=== PATIENT | male | born 1980 | race Caucasian/White ===

== ENCOUNTER 2017-05-09 09:45 | Inpatient (IN) | payer OTHER ==
[2017-05-09 10:23] VITALS: BMI 22.3
--- NOTE | 2017-05-09 11:39 | HP ---
CIWA Score - CIWA Score Nausea/Vomitin Muscle Tremors: 3 Anxiety: 3 Agitation: 3 Paroxysmal Sweats: 1-Minimal Palms Moist Orientation: 0-Oriented Tacttile Disturbances: 1-Very Mild Itch/Numbness Auditory Disturbances: 1-Very Mild Visual Disturbances: 0-None Headache: 2-Mild CIWA-Ar Total Score: 17 Admission ROS BHS - HPI Chief Complaint: i need help to stop drinking alcohol and xanax Allergies/Adverse Reactions: Allergies Allergy/AdvReac Type Severity Reaction Status Date / Time Penicillins Allergy Severe Rash Verified 05/09/17 10:32 History of Present Illness: this 37 years old male with alcohol dependence and xanax dependence,seeking detox,on suboxone maintenance 8mg/2mg sl bid last treatment 03/15 [place] depression nicotine dependence weight loss longest sobriety 3 years Exam Limitations: No Limitations - Ebola screening Have you been sick,other than usual withdrawal symptoms: No - Review of Systems Constitutional: Loss of Appetite, Malaise, Night Sweats, Changes in sleep, Weakness, Unintentional Wgt. Loss EENT: reports: Nose Congestion Respiratory: reports: No Symptoms reported Cardiac: reports: No Symptoms Reported GI: reports: Nausea, Vomiting, Abdominal cramping : reports: No Symptoms Reported Musculoskeletal: reports: No Symptoms Reported Integumentary: reports: Dryness Neuro: reports: Headache, Tremors Endocrine: reports: No Symptoms Reported Hematology: reports: No Symptoms Reported Psychiatric: reports: Depressed Patient History - Patient Medical History Hx Anemia: No Hx Asthma: No Hx Chronic Obstructive Pulmonary Disease (COPD): No Hx Cancer: No Hx Cardiac Disorders: No Hx Congestive Heart Failure: No Hx Hypertension: No Hx Hypercholesterolemia: No Hx Pacemaker: No HX Cerebrovascular Accident: No Hx Seizures: No Hx Dementia: No Hx Diabetes: No Hx Gastrointestinal Disorders: No Hx Liver Disease: No Hx Genitourinary Disorders: No Hx Sexually Transmitted Disorders: No Hx Renal Disease (ESRD): No Hx Human Immunodeficiency Virus (HIV): No (last 03/15 negative) Hx Hepatitis C: No Hx Depression: Yes Hx Suicide Attempt: No Hx Bipolar Disorder: No Hx Schizophrenia: No Other Medical History: no suicidal,no homicidal - Patient Surgical History Past Surgical History: No - PPD History Previous Implant?: Yes Documented Results: Negative w/o proof Implanted On Prior [facility] Admission?: No PPD to be Administered?: Yes - Smoking Cessation Smoking history: Current every day smoker Have you smoked in the past 12 months: Yes Aproximately how many cigarettes per day: 15 Hx Chewing Tobacco Use: No Initiated information on smoking cessation: Yes 'Breaking Loose' booklet given: 05/09/17 - Substance & Tx. History Hx Alcohol Use: Yes Hx Substance Use: Yes Substance Use Type: Alcohol, Cocaine, Marijuana, Tranquilizers Hx Substance Use Treatment: Yes ([facility] sag[facility]ume 03/15 completed) - Substances Abused Alcohol Route: Oral Frequency: Daily Amount used: 6PK BEER Age of first use: 20 Date of Last Use: 05/09/17 Cocaine Route: Injection Frequency: Daily Amount used: $40-60 Age of first use: 26 Date of Last Use: 05/08/17 Marijuana/Hashish Route: Smoking Frequency: 1-3 times last 30 days Amount used: 2-3 DRAGS Age of first use: 24 Date of Last Use: 05/06/17 Alprazolam (Xanax) Route: Oral Frequency: 3-6 times per week Amount used: 2MG Age of first use: 31 Date of Last Use: 05/08/17 Family Disease History - Family Disease History Family Disease History: Other: Brother (alcohol) Admission Physical Exam S - Vital Signs Vital Signs: Vital Signs - 24 hr 05/09/17 10:18 Temperature 99 F Pulse Rate 81 Respiratory 18 Rate Blood Pressure 107/60 - Physical General Appearance: Yes: Moderate Distress, Tremorous, Sweating HEENTM: Yes: Normal ENT Inspection, [place], Pharynx Normal Respiratory: Yes: Lungs Clear, Normal Breath Sounds, No Respiratory Distress Neck: Yes: Within Normal Limits Breast: Yes: Within Normal Limits Cardiology: Yes: Within Normal Limits, Regular Rhythm, Regular Rate, S1, S2 Abdominal: Yes: Within Normal Limits, Normal Bowel Sounds, Non Tender, Flat, Soft Genitourinary: Yes: Within Normal Limits Back: Yes: Muscle Spasm Extremities: Yes: Tremors Neurological: Yes: Within Normal Limits, manufacturing applications engineer II-XII NML intact, Fully Oriented, Alert, Motor Strength 5/5 Integumentary: Yes: Dry Lymphatic: Yes: Within Normal Limits - Diagnostic (1) Alcohol dependence with uncomplicated withdrawal Current Visit: Yes Status: Acute (2) Cocaine dependence Current Visit: Yes Status: Acute (3) Uncomplicated sedative, hypnotic or anxiolytic withdrawal Current Visit: Yes Status: Acute (4) Cannabis dependence Current Visit: Yes Status: Acute (5) Seizure Current Visit: Yes Status: Acute (6) Encounter for monitoring Suboxone maintenance therapy Current Visit: Yes Status: Acute (7) Nicotine dependence Current Visit: Yes Status: Acute (8) Depression Current Visit: Yes Status: Acute (9) Weight loss Current Visit: Yes Status: Acute Cleared for Admission BHS - Detox or Rehab Detox Regimen/Protocol: Valium BHS Breath Alcohol Content Breath Alcohol Content: 0 Urine Drug Screen - Results Drug Screen Negative: No Urine Drug Screen Results: THC-Marijuana, [place]-Cocaine, OPI-Opiates, BAR- Barbiturates, BZO-Benzodiazepines, OXY-Oxycodone
[2017-05-09] MEDS ORDERED: MAGNESIUM CITRATE 300 ML BOTTLE PO PRN (11:51)
[2017-05-09] MEDS ORDERED: MAG HYDROX/AL HYDROX/SIMETH 30 ML UNIT-DOSE CUP PO PRN (11:51)
[2017-05-09] MEDS ORDERED: P-EPHED 60MG/TRIPROLIDI 2.5MG TABLET PO PRN (11:51)
[2017-05-09] MEDS ORDERED: guaiFENesin/D-METHORPHAN HB 10 ML UNIT-DOSE CUPS PO PRN (11:51)
[2017-05-09] MEDS ORDERED: MAGNESIUM HYDROX 2400MG/30ML ORAL SUSPENSION 30 ML CUP PO PRN (11:51)
[2017-05-09] MEDS ORDERED: MENTHOL/PHENOL 1 EACH UD MM PRN (11:51)
[2017-05-09] MEDS ORDERED: LOPERAMIDE HCL 2 MG CAPSULE PO PRN (11:51)
[2017-05-09] MEDS ORDERED: diazePAM 5 MG TABLET PO ONE (13:41)
--- NOTE | 2017-05-09 14:00 | PN ---
BHS Progress Note Note: patient has abscess of left forearm o give clecin 300 mgs po tid
[2017-05-09] MEDS: CLINDAMYCIN HCL 150 MG CAPSULE (FP) PO SCH ×2 (14:41→22:10)
[2017-05-09] MEDS: NICOTINE 21 MG/24 HOURS TOPICAL PATCH TD SCH (14:42)
[2017-05-09] MEDS: NICOTINE POLACRILEX 2 MG GUM BUC PRN (14:42)
[2017-05-09] MEDS: diazePAM 5 MG TABLET PO SCH ×2 (14:43→22:10)
--- NOTE | 2017-05-09 15:43 | PN ---
[facility] Progress Note Note: Psychiatric nurse practitioner: Approached patient twice in response to psychiatric consultation. Pt. refused. Stated, "tomorrow will be much better. I do not want to speak today."
--- NOTE | 2017-05-09 16:02 | EKG ---
Test Reason : Blood Pressure : / mmHG Vent. Rate : 067 BPM Atrial Rate : 067 BPM P-R Int : 132 ms QRS Dur : 090 ms QT Int : 408 ms P-R-T Axes : 065 062 040 degrees QTc Int : 431 ms NORMAL SINUS RHYTHM MINIMAL VOLTAGE CRITERIA FOR LVH, MAY BE NORMAL VARIANT BORDERLINE ECG NO PREVIOUS ECGS AVAILABLE Confirmed by YU CAMPOS MD ([id number]) on 05/09/2017 4:02:35 PM Referred By: Confirmed By:YU CAMPOS MD
[2017-05-09] MEDS: BUPRENORPHINE/NALOXONE 8 MG/2 MG FILM PACKET SL SCH (17:32)
[2017-05-09] MEDS: THIAMINE HCL 100 MG TABLET (FP) PO SCH (22:10)
[2017-05-09 23:19] LABS: URINE APPEARANCE CLEAR; URINE BILIRUBIN NEGATIVE (NEGATIVE); URINE BLOOD NEGATIVE (NEGATIVE); URINE COLOR YELLOW; URINE GLUCOSE (UA) NEGATIVE (NEGATIVE); URINE KETONE NEGATIVE (NEGATIVE); URINE NITRITE NEGATIVE (NEGATIVE); URINE PROTEIN NEGATIVE (NEGATIVE); URINE UROBILINOGEN NEGATIVE mg/dL (0.2-1.0)
[2017-05-09 23:30] LABS: URINE LEUK ESTERASE 1+ (NEGATIVE)
[2017-05-10 00:16] LABS: URINE MUCUS RARE
[2017-05-10] MEDS: diazePAM 5 MG TABLET PO SCH ×3 (05:11→22:07)
[2017-05-10] MEDS: CLINDAMYCIN HCL 150 MG CAPSULE (FP) PO SCH ×3 (05:11→22:07)
[2017-05-10] MEDS: ACETAMINOPHEN 325 MG TABLET (FP) PO PRN ×2 (06:27→22:08)
[2017-05-10 10:04] LABS: HEMOGLOBIN 11.6 GM/dL (11.7-16.9); MCH 30.3 pg (25.7-33.7); MCHC 32.3 g/dl (32.0-35.9); MEAN PLT VOLUME 8.3 fl (7.5-11.1); PLATELET COUNT 336 K/MM3 (134-434); RBC 3.83 M/mm3 (4.00-5.60); RDW 14.3 % (11.9-15.9); WHITE BLOOD COUNT 7.1 K/mm3 (4.0-10.0)
[2017-05-10] MEDS: PRENATAL VITAMINS W/ FOLIC ACID TABLET (FP) PO SCH (10:05)
[2017-05-10] MEDS: NICOTINE 21 MG/24 HOURS TOPICAL PATCH TD SCH (10:06)
[2017-05-10] MEDS: BUPRENORPHINE/NALOXONE 8 MG/2 MG FILM PACKET SL SCH ×3 (10:06→18:39)
[2017-05-10 10:17] LABS: ALBUMIN 3.6 g/dl (3.4-5.0); ANION GAP 4 (8-16); BLOOD UREA NITROGEN 8 mg/dL (7-18); CALCIUM 8.5 mg/dL (8.5-10.1); CHLORIDE 99 mmol/L (98-107); CO2 31 mmol/L (21-32); CREATININE 0.8 mg/dL (0.7-1.3); GLUCOSE,RANDOM 104 mg/dL (74-106); POTASSIUM 4.2 mmol/L (3.5-5.1); SGOT/AST 10 U/L (15-37); SGPT/ALT 13 U/L (12-78); SODIUM 134 mmol/L (136-145)
[2017-05-10 10:20] LABS: ALK PHOS 94 U/L (45-117); BILIRUBIN,TOTAL 0.5 mg/dL (0.2-1.0); TOT PROT 7.3 g/dl (6.4-8.2)
--- NOTE | 2017-05-10 10:40 | PN ---
[facility] CIWA - CIWA Score Nausea/Vomitin-No Nausea/No Vomiting Muscle Tremors: 4-Moderate,w/Arms Extend Anxiety: 4-Mod. Anxious/Guarded Agitation: 4-Moderately Restless Paroxysmal Sweats: 1-Minimal Palms Moist Orientation: 0-Oriented Tacttile Disturbances: 3-Moderate Itch/Numb/Burn Auditory Disturbances: 0-None Visual Disturbances: 0-None Headache: 0-None Present CIWA-Ar Total Score: 16 BHS Progress Note (SOAP) Subjective: ANXIETY,SWEATS,IRRITABILITY,LOWER BACK PAIN. PAIN TO LEFT FOREARM IVD INJ. SITE. Objective: 05/10/17 10:39 Vital Signs Temperature 95.6 F L 05/10/17 09:45 Pulse Rate 70 05/10/17 09:45 Respiratory Rate 18 05/10/17 09:45 Blood Pressure 93/67 05/10/17 09:45 O2 Sat by Pulse Oximetry (%) Laboratory Last Values WBC 7.1 K/mm3 (4.0-10.0) 05/10/17 05:45 RBC 3.83 M/mm3 (4.00-5.60) L 05/10/17 05:45 Hgb 11.6 GM/dL (11.7-16.9) L 05/10/17 05:45 Hct 36.0 % (35.4-49) 05/10/17 05:45 MCV 94.0 fl (80-96) 05/10/17 05:45 MCH 30.3 pg (25.7-33.7) 05/10/17 05:45 MCHC 32.3 g/dl (32.0-35.9) 05/10/17 05:45 RDW 14.3 % (11.9-15.9) 05/10/17 05:45 Plt Count 336 K/MM3 (134-434) 05/10/17 05:45 MPV 8.3 fl (7.5-11.1) 05/10/17 05:45 Sodium 134 mmol/L (136-145) L 05/10/17 05:45 Potassium 4.2 mmol/L (3.5-5.1) 05/10/17 05:45 Chloride 99 mmol/L (98-107) 05/10/17 05:45 Carbon Dioxide 31 mmol/L (21-32) 05/10/17 05:45 Anion Gap 4 (8-16) L 05/10/17 05:45 BUN 8 mg/dL (7-18) 05/10/17 05:45 Creatinine 0.8 mg/dL (0.7-1.3) 05/10/17 05:45 Creat Clearance w eGFR > 60 (>60) 05/10/17 05:45 Random Glucose 104 mg/dL (74-106) 05/10/17 05:45 Calcium 8.5 mg/dL (8.5-10.1) 05/10/17 05:45 Total Bilirubin 0.5 mg/dL (0.2-1.0) 05/10/17 05:45 AST 10 U/L (15-37) L 05/10/17 05:45 ALT 13 U/L (12-78) 05/10/17 05:45 Alkaline Phosphatase 94 U/L (45-117) 05/10/17 05:45 Total Protein 7.3 g/dl (6.4-8.2) 05/10/17 05:45 Albumin 3.6 g/dl (3.4-5.0) 05/10/17 05:45 Urine Color Yellow 05/09/17 21:00 Urine Appearance Clear 05/09/17 21:00 Urine pH 6.0 (5.0-8.0) 05/09/17 21:00 Ur Specific [place] 1.016 (1.001-1.035) 05/09/17 21:00 Urine Protein Negative (NEGATIVE) 05/09/17 21:00 Urine Glucose (UA) Negative (NEGATIVE) 05/09/17 21:00 Urine Ketones Negative (NEGATIVE) 05/09/17 21:00 Urine Blood Negative (NEGATIVE) 05/09/17 21:00 Urine Nitrite Negative (NEGATIVE) 05/09/17 21:00 Urine Bilirubin Negative (NEGATIVE) 05/09/17 21:00 Urine Urobilinogen Negative mg/dL (0.2-1.0) 05/09/17 21:00 Ur Leukocyte Esterase 1+ (NEGATIVE) H 05/09/17 21:00 Urine WBC (Auto) 6 /hpf (3-5) 05/09/17 21:00 Urine RBC (Auto) <1 /hpf (0-3) 05/09/17 21:00 Urine Mucus Rare 05/09/17 21:00 LABS/UA NOTED Assessment: 05/10/17 10:39 WITHDRAWAL SX Plan: CONTINUE DETOX REPEAT UA; UC
--- NOTE | 2017-05-10 10:57 | CONSULT ---
[facility] Psychiatric Consult - Data Date of interview: 05/10/17 Admission source: [facility] Identifying data: Patient is approached at bedside for psychiatric evaluation.Mr Hernandez,politely,declines to converse with this insurance underwriter sales." I don't need to talk to a psychiatrist.I am just fine.Thank you for asking." Nursing staff is made aware.
[2017-05-10] MEDS: BACITRACIN 0.9 GM PACKET TP SCH ×2 (11:00→22:07)
[2017-05-10] MEDS ORDERED: FLU VACCINE QUAD 60 MCG/0.5 ML (MDV 17-18) IM ONE (12:00)
[2017-05-10] MEDS: IBUPROFEN 400 MG TABLET (FP) PO PRN ×2 (12:25→18:22)
[2017-05-10 14:23] LABS: URINE APPEARANCE CLEAR; URINE BILIRUBIN NEGATIVE (NEGATIVE); URINE BLOOD NEGATIVE (NEGATIVE); URINE COLOR YELLOW; URINE GLUCOSE (UA) NEGATIVE (NEGATIVE); URINE KETONE NEGATIVE (NEGATIVE); URINE LEUK ESTERASE NEGATIVE (NEGATIVE); URINE NITRITE NEGATIVE (NEGATIVE); URINE PROTEIN NEGATIVE (NEGATIVE); URINE UROBILINOGEN NEGATIVE mg/dL (0.2-1.0)
[2017-05-10] MEDS: NICOTINE POLACRILEX 2 MG GUM BUC PRN (20:22)
[2017-05-10] MEDS: THIAMINE HCL 100 MG TABLET (FP) PO SCH (22:07)
[2017-05-11] MEDS: IBUPROFEN 400 MG TABLET (FP) PO PRN (02:30)
[2017-05-11] MEDS: diazePAM 5 MG TABLET PO PRN ×2 (05:45→14:46)
[2017-05-11] MEDS: CLINDAMYCIN HCL 150 MG CAPSULE (FP) PO SCH ×3 (05:46→22:07)
[2017-05-11] MEDS: ACETAMINOPHEN 325 MG TABLET (FP) PO PRN ×2 (08:22→20:24)
--- NOTE | 2017-05-11 08:58 | PN ---
S CIWA - CIWA Score Nausea/Vomitin Muscle Tremors: 2 Anxiety: 3 Agitation: 1-Slight > Activity Paroxysmal Sweats: 2 Orientation: 0-Oriented Tacttile Disturbances: 1-Very Mild Itch/Numbness Auditory Disturbances: 1-Very Mild Visual Disturbances: 1-Very Mild Sensitivity Headache: 1-Very Mild CIWA-Ar Total Score: 14 S Progress Note (SOAP) Subjective: Shakes, anxiety, left hand pain Objective: 05/11/17 08:54 Vital Signs 05/11/17 05/11/17 03:26 06:21 Temperature 97.5 F L Pulse Rate 74 Respiratory 18 18 Rate Blood Pressure 100/64 Laboratory Last Values WBC 7.1 K/mm3 (4.0-10.0) 05/10/17 05:45 RBC 3.83 M/mm3 (4.00-5.60) L 05/10/17 05:45 Hgb 11.6 GM/dL (11.7-16.9) L 05/10/17 05:45 Hct 36.0 % (35.4-49) 05/10/17 05:45 MCV 94.0 fl (80-96) 05/10/17 05:45 MCH 30.3 pg (25.7-33.7) 05/10/17 05:45 MCHC 32.3 g/dl (32.0-35.9) 05/10/17 05:45 RDW 14.3 % (11.9-15.9) 05/10/17 05:45 Plt Count 336 K/MM3 (134-434) 05/10/17 05:45 MPV 8.3 fl (7.5-11.1) 05/10/17 05:45 Sodium 134 mmol/L (136-145) L 05/10/17 05:45 Potassium 4.2 mmol/L (3.5-5.1) 05/10/17 05:45 Chloride 99 mmol/L (98-107) 05/10/17 05:45 Carbon Dioxide 31 mmol/L (21-32) 05/10/17 05:45 Anion Gap 4 (8-16) L 05/10/17 05:45 BUN 8 mg/dL (7-18) 05/10/17 05:45 Creatinine 0.8 mg/dL (0.7-1.3) 05/10/17 05:45 Creat Clearance w eGFR > 60 (>60) 05/10/17 05:45 Random Glucose 104 mg/dL (74-106) 05/10/17 05:45 Calcium 8.5 mg/dL (8.5-10.1) 05/10/17 05:45 Total Bilirubin 0.5 mg/dL (0.2-1.0) 05/10/17 05:45 AST 10 U/L (15-37) L 05/10/17 05:45 ALT 13 U/L (12-78) 05/10/17 05:45 Alkaline Phosphatase 94 U/L (45-117) 05/10/17 05:45 Total Protein 7.3 g/dl (6.4-8.2) 05/10/17 05:45 Albumin 3.6 g/dl (3.4-5.0) 05/10/17 05:45 Urine Color Yellow 05/10/17 13:25 Urine Appearance Clear 05/10/17 13:25 Urine pH 7.0 (5.0-8.0) 05/10/17 13:25 Ur Specific [place] 1.012 (1.001-1.035) 05/10/17 13:25 Urine Protein Negative (NEGATIVE) 05/10/17 13:25 Urine Glucose (UA) Negative (NEGATIVE) 05/10/17 13:25 Urine Ketones Negative (NEGATIVE) 05/10/17 13:25 Urine Blood Negative (NEGATIVE) 05/10/17 13:25 Urine Nitrite Negative (NEGATIVE) 05/10/17 13:25 Urine Bilirubin Negative (NEGATIVE) 05/10/17 13:25 Urine Urobilinogen Negative mg/dL (0.2-1.0) 05/10/17 13:25 Ur Leukocyte Esterase Negative (NEGATIVE) 05/10/17 13:25 Urine WBC (Auto) 6 /hpf (3-5) 05/09/17 21:00 Urine RBC (Auto) <1 /hpf (0-3) 05/09/17 21:00 Urine Mucus Rare 05/09/17 21:00 RPR Titer Nonreactive (NONREACTIVE) 05/10/17 05:45 Labs noted Left forearm swelling, moderate erythema and pain 02/05 Assessment: 05/11/17 08:55 Withdrawal sx Left arm abscess, may need I&D Plan: ED evaluation of abscess
[2017-05-11] MEDS: BUPRENORPHINE/NALOXONE 8 MG/2 MG FILM PACKET SL SCH ×2 (09:35→18:15)
[2017-05-11] MEDS: NICOTINE 21 MG/24 HOURS TOPICAL PATCH TD SCH (09:35)
[2017-05-11] MEDS: diazePAM 5 MG TABLET PO SCH ×2 (09:35→22:07)
[2017-05-11] MEDS: BACITRACIN 0.9 GM PACKET TP SCH ×2 (09:35→22:07)
[2017-05-11] MEDS: PRENATAL VITAMINS W/ FOLIC ACID TABLET (FP) PO SCH (09:35)
--- NOTE | 2017-05-11 14:31 | PN ---
[facility] Progress Note Note: Patient was transferred to ED this morning for I&D of left arm abscess. Same was done with no complication and he is sent back to continue detox. He is received in no apparent distress. The surgical site has plain nugauze packing, small amount of bleeding noted. His labs are wnl. A/P s/p I&D of left arm abscess Continue cleocin, local wound care as ordered.
[2017-05-11] MEDS: THIAMINE HCL 100 MG TABLET (FP) PO SCH (22:07)
[2017-05-12] MEDS: diazePAM 5 MG TABLET PO PRN (06:15)
[2017-05-12] MEDS: CLINDAMYCIN HCL 150 MG CAPSULE (FP) PO SCH ×2 (06:15→13:19)
[2017-05-12] MEDS: IBUPROFEN 400 MG TABLET (FP) PO PRN (06:15)
[2017-05-12] MEDS: PRENATAL VITAMINS W/ FOLIC ACID TABLET (FP) PO SCH (10:26)
[2017-05-12] MEDS: BUPRENORPHINE/NALOXONE 8 MG/2 MG FILM PACKET SL SCH ×2 (10:26→17:33)
[2017-05-12] MEDS: NICOTINE 21 MG/24 HOURS TOPICAL PATCH TD SCH (10:26)
[2017-05-12] MEDS: NICOTINE POLACRILEX 2 MG GUM BUC PRN ×3 (10:27→22:07)
[2017-05-12] MEDS: diazePAM 5 MG TABLET PO SCH ×2 (10:27→22:05)
[2017-05-12] MEDS: BACITRACIN 0.9 GM PACKET TP SCH ×2 (10:29→22:04)
--- NOTE | 2017-05-12 12:52 | PN ---
[facility] Progress Note (SOAP) Subjective: lower back pain sweats dressing to L arm incision area intact Objective: 05/12/17 12:49 Laboratory Last Values WBC 7.1 K/mm3 (4.0-10.0) 05/10/17 05:45 RBC 3.83 M/mm3 (4.00-5.60) L 05/10/17 05:45 Hgb 11.6 GM/dL (11.7-16.9) L 05/10/17 05:45 Hct 36.0 % (35.4-49) 05/10/17 05:45 MCV 94.0 fl (80-96) 05/10/17 05:45 MCH 30.3 pg (25.7-33.7) 05/10/17 05:45 MCHC 32.3 g/dl (32.0-35.9) 05/10/17 05:45 RDW 14.3 % (11.9-15.9) 05/10/17 05:45 Plt Count 336 K/MM3 (134-434) 05/10/17 05:45 MPV 8.3 fl (7.5-11.1) 05/10/17 05:45 Sodium 134 mmol/L (136-145) L 05/10/17 05:45 Potassium 4.2 mmol/L (3.5-5.1) 05/10/17 05:45 Chloride 99 mmol/L (98-107) 05/10/17 05:45 Carbon Dioxide 31 mmol/L (21-32) 05/10/17 05:45 Anion Gap 4 (8-16) L 05/10/17 05:45 BUN 8 mg/dL (7-18) 05/10/17 05:45 Creatinine 0.8 mg/dL (0.7-1.3) 05/10/17 05:45 Creat Clearance w eGFR > 60 (>60) 05/10/17 05:45 Random Glucose 104 mg/dL (74-106) 05/10/17 05:45 Calcium 8.5 mg/dL (8.5-10.1) 05/10/17 05:45 Total Bilirubin 0.5 mg/dL (0.2-1.0) 05/10/17 05:45 AST 10 U/L (15-37) L 05/10/17 05:45 ALT 13 U/L (12-78) 05/10/17 05:45 Alkaline Phosphatase 94 U/L (45-117) 05/10/17 05:45 Total Protein 7.3 g/dl (6.4-8.2) 05/10/17 05:45 Albumin 3.6 g/dl (3.4-5.0) 05/10/17 05:45 Urine Color Yellow 05/10/17 13:25 Urine Appearance Clear 05/10/17 13:25 Urine pH 7.0 (5.0-8.0) 05/10/17 13:25 Ur Specific [place] 1.012 (1.001-1.035) 05/10/17 13:25 Urine Protein Negative (NEGATIVE) 05/10/17 13:25 Urine Glucose (UA) Negative (NEGATIVE) 05/10/17 13:25 Urine Ketones Negative (NEGATIVE) 05/10/17 13:25 Urine Blood Negative (NEGATIVE) 05/10/17 13:25 Urine Nitrite Negative (NEGATIVE) 05/10/17 13:25 Urine Bilirubin Negative (NEGATIVE) 05/10/17 13:25 Urine Urobilinogen Negative mg/dL (0.2-1.0) 05/10/17 13:25 Ur Leukocyte Esterase Negative (NEGATIVE) 05/10/17 13:25 Urine WBC (Auto) 6 /hpf (3-5) 05/09/17 21:00 Urine RBC (Auto) <1 /hpf (0-3) 05/09/17 21:00 Urine Mucus Rare 05/09/17 21:00 RPR Titer Nonreactive (NONREACTIVE) 05/10/17 05:45 labs noted Assessment: 05/12/17 12:52 withdrawal sx Plan: continue detox increase fluids dressing to L arm as ordered Bactrim for urine culture
[2017-05-12] MEDS: hydrOXYzine PAMOATE 50 MG CAPSULE (FP) PO PRN ×2 (13:20→22:05)
[2017-05-12] MEDS: THIAMINE HCL 100 MG TABLET (FP) PO SCH (22:04)
[2017-05-12] MEDS: SULFAMETHOXAZOLE/TRIMETHOPRIM 800MG/160MG D.S. TABLET PO SCH (22:04)
[2017-05-12] MEDS: ACETAMINOPHEN 325 MG TABLET (FP) PO PRN (22:07)
[2017-05-13] MEDS: hydrOXYzine PAMOATE 50 MG CAPSULE (FP) PO PRN (02:21)
[2017-05-13 09:15] VITALS: BP 104/69; PULSE 75; TEMP 96.4
[2017-05-13] MEDS: SULFAMETHOXAZOLE/TRIMETHOPRIM 800MG/160MG D.S. TABLET PO SCH (09:23)
[2017-05-13] MEDS: BUPRENORPHINE/NALOXONE 8 MG/2 MG FILM PACKET SL SCH (09:23)
[2017-05-13] MEDS: PRENATAL VITAMINS W/ FOLIC ACID TABLET (FP) PO SCH (09:23)
[2017-05-13] MEDS: BACITRACIN 0.9 GM PACKET TP SCH (09:23)
[2017-05-13] MEDS: NICOTINE 21 MG/24 HOURS TOPICAL PATCH TD SCH (09:24)
[2017-05-13] MEDS ORDERED: diazePAM 5 MG TABLET PO SCH (10:00)
--- NOTE | 2017-05-13 11:30 | DS ---
[facility] Detox Discharge Summary Admission Date: 05/09/17 Discharge Date: 05/13/17 - History Present History: Alcohol Dependence Additional Comments: DETOX COMPLETED. ALERT O X 3. Pertinent Past History: SEIZURE D/O HX ABSCESS LEFT FOREARM - Physical Exam Results Vital Signs: Vital Signs Temperature 96.4 F L 05/13/17 09:14 Pulse Rate 75 05/13/17 09:14 Respiratory Rate 18 05/13/17 09:14 Blood Pressure 104/69 05/13/17 09:14 O2 Sat by Pulse Oximetry (%) Pertinent Admission Physical Exam Findings: WITHDRAWAL SX ABSCESS AND CELLULITIS LEFT FOREARM Laboratory Last Values WBC 7.1 K/mm3 (4.0-10.0) 05/10/17 05:45 RBC 3.83 M/mm3 (4.00-5.60) L 05/10/17 05:45 Hgb 11.6 GM/dL (11.7-16.9) L 05/10/17 05:45 Hct 36.0 % (35.4-49) 05/10/17 05:45 MCV 94.0 fl (80-96) 05/10/17 05:45 MCH 30.3 pg (25.7-33.7) 05/10/17 05:45 MCHC 32.3 g/dl (32.0-35.9) 05/10/17 05:45 RDW 14.3 % (11.9-15.9) 05/10/17 05:45 Plt Count 336 K/MM3 (134-434) 05/10/17 05:45 MPV 8.3 fl (7.5-11.1) 05/10/17 05:45 Sodium 134 mmol/L (136-145) L 05/10/17 05:45 Potassium 4.2 mmol/L (3.5-5.1) 05/10/17 05:45 Chloride 99 mmol/L (98-107) 05/10/17 05:45 Carbon Dioxide 31 mmol/L (21-32) 05/10/17 05:45 Anion Gap 4 (8-16) L 05/10/17 05:45 BUN 8 mg/dL (7-18) 05/10/17 05:45 Creatinine 0.8 mg/dL (0.7-1.3) 05/10/17 05:45 Creat Clearance w eGFR > 60 (>60) 05/10/17 05:45 Random Glucose 104 mg/dL (74-106) 05/10/17 05:45 Calcium 8.5 mg/dL (8.5-10.1) 05/10/17 05:45 Total Bilirubin 0.5 mg/dL (0.2-1.0) 05/10/17 05:45 AST 10 U/L (15-37) L 05/10/17 05:45 ALT 13 U/L (12-78) 05/10/17 05:45 Alkaline Phosphatase 94 U/L (45-117) 05/10/17 05:45 Total Protein 7.3 g/dl (6.4-8.2) 05/10/17 05:45 Albumin 3.6 g/dl (3.4-5.0) 05/10/17 05:45 Urine Color Yellow 05/10/17 13:25 Urine Appearance Clear 05/10/17 13:25 Urine pH 7.0 (5.0-8.0) 05/10/17 13:25 Ur Specific [place] 1.012 (1.001-1.035) 05/10/17 13:25 Urine Protein Negative (NEGATIVE) 05/10/17 13:25 Urine Glucose (UA) Negative (NEGATIVE) 05/10/17 13:25 Urine Ketones Negative (NEGATIVE) 05/10/17 13:25 Urine Blood Negative (NEGATIVE) 05/10/17 13:25 Urine Nitrite Negative (NEGATIVE) 05/10/17 13:25 Urine Bilirubin Negative (NEGATIVE) 05/10/17 13:25 Urine Urobilinogen Negative mg/dL (0.2-1.0) 05/10/17 13:25 Ur Leukocyte Esterase Negative (NEGATIVE) 05/10/17 13:25 Urine WBC (Auto) 6 /hpf (3-5) 05/09/17 21:00 Urine RBC (Auto) <1 /hpf (0-3) 05/09/17 21:00 Urine Mucus Rare 05/09/17 21:00 RPR Titer Nonreactive (NONREACTIVE) 05/10/17 05:45 - Treatment Hospital Course: Detox Protocol Followed, Detoxed Safely, Responded well, Discharged Condition Good - Medication Discharge Medications: Ambulatory Orders Buprenorphine/Naloxone [Suboxone 8Mg/2Mg Sl Film -] 1 each SL BID 05/09/17 Sulfamethoxazole/Trimethoprim [Bactrim DS -] 1 each PO BID #20 tablet 05/13/17 - Diagnosis (1) Alcohol dependence with uncomplicated withdrawal Current Visit: Yes Status: Acute (2) Cannabis dependence Current Visit: Yes Status: Acute (3) Cocaine dependence Current Visit: Yes Status: Acute Qualifiers: Substance use status: uncomplicated Qualified Code(s): F14.20 - Cocaine dependence, uncomplicated (4) Encounter for monitoring Suboxone maintenance therapy Current Visit: Yes Status: Acute (5) Nicotine dependence Current Visit: Yes Status: Acute Qualifiers: Nicotine product type: cigarettes Substance use status: uncomplicated Qualified Code(s): F17.210 - Nicotine dependence, cigarettes, uncomplicated (6) Seizure Current Visit: Yes Status: Acute (7) Uncomplicated sedative, hypnotic or anxiolytic withdrawal Current Visit: Yes Status: Acute (8) Weight loss Current Visit: Yes Status: Acute (9) Abscess of left forearm Current Visit: Yes Status: Acute (10) Cellulitis of left forearm Current Visit: Yes Status: Acute (11) UTI (urinary tract infection) Current Visit: Yes Status: Acute - AMA Did Patient Leave Against Medical Advice: No
== END 2017-05-13 09:31 | disposition home or self-care (01) | DRG 773 ==
LOC: YASAS 09:45 → Y3N 13:26
PROVIDERS: ADMIT Internal Medicine; ATTEND Internal Medicine
PROC: HZ2ZZZZ Detoxification Services for Substance Abuse Treatment (ICD-10-PCS; principal; 2017-05-09)
DX: F10.230 Alcohol dependence with withdrawal, uncomplicated (principal); F13.230 Sedative, hypnotic or anxiolytic dependence with withdrawal, uncomplicated; F11.20 Opioid dependence, uncomplicated; F14.20 Cocaine dependence, uncomplicated; F12.20 Cannabis dependence, uncomplicated; F17.210 Nicotine dependence, cigarettes, uncomplicated; F32.9 Major depressive disorder, single episode, unspecified; L02.414 Cutaneous abscess of left upper limb; L03.114 Cellulitis of left upper limb; N39.0 Urinary tract infection, site not specified; Z88.0 Allergy status to penicillin; Z86.69 Personal history of other diseases of the nervous system and sense organs; Z87.898 Personal history of other specified conditions
CPT/HCPCS: 36415; 80053; 81003; 81015; 85027; 86593; 87086; 87186; 93005; 93010

== ENCOUNTER 2017-05-11 10:03 | Emergency (ER) | payer OTHER ==
[2017-05-11 10:16] VITALS: BMI 22.0
[2017-05-11] MEDS ORDERED: KETOROLAC TROMETHAMINE 30 MG/1 ML VIAL IVPUSH ONE (10:21)
[2017-05-11] MEDS ORDERED: SODIUM CHLORIDE 1,000 ML IV STA (10:21)
[2017-05-11] MEDS ORDERED: KETOROLAC TROMETHAMINE 30 MG/1 ML VIAL ONE (10:31)
--- NOTE | 2017-05-11 10:56 | PDOC ---
History of Present Illness - General History Source: Patient Exam Limitations: No Limitations - History of Present Illness Initial Comments: 05/11/17 10:56 The patient is a 33 year old male, with a significant past medical history of alcohol dependence, xanax dependence, depression, nicotine dependence, who presents to the emergency department via ems from [facility] for increased pain, erythema, and swelling to an abscess on his left forearm sustained after using heroin about 5 days ago just prior to his intake at the detox facility. He reports receiving Valium, suboxone, and an antibiotic this morning. He reports the pain is localized to his left forearm, 10/10 in severity , burning and hot to touch. He reportedly uses heroin and cocaine 2-4x a day since his son . He denies chest pain, shortness of breath, headache and dizziness. He denies fever, chills, nausea, vomit, diarrhea and constipation. He denies dysuria, frequency, urgency and hematuria. Allergies: penicillins <Ana Yoder - Last Filed: 05/11/17 10:56> - General History Source: Patient Exam Limitations: No Limitations <Angel Gutierrez - Last Filed: 05/11/17 12:20> - General Chief Complaint: Edema Stated Complaint: L ARM SWOLLEN Time Seen by Provider: 05/11/17 10:07 Past History <Ana Yoder - Last Filed: 05/11/17 10:56> - Past Medical History Anemia: No Asthma: No Cancer: No Cardiac Disorders: No CVA: No COPD: No CHF: No Dementia: No Diabetes: No GI Disorders: No Disorders: No HTN: No Hypercholesterolemia: No Kidney Stones: No Liver Disease: No Seizures: No - Reproductive History Testicular Surgery: No - Suicide/Smoking/Psychosocial Hx Smoking History: Current every day smoker Have you smoked in the past 12 months: Yes Number of Cigarettes Smoked Daily: 15 Information on smoking cessation initiated: No 'Breaking Loose' booklet given: 05/09/17 Hx Alcohol Use: Yes Drug/Substance Use Hx: Yes Substance Use Type: Alcohol, Cocaine, Marijuana, Tranquilizers Hx Substance Use Treatment: Yes ([facility] 03/15 completed) <Angel Gutierrez - Last Filed: 05/11/17 12:20> - Past Medical History Allergies/Adverse Reactions: Allergies Allergy/AdvReac Type Severity Reaction Status Date / Time Penicillins Allergy Severe Rash Verified 05/11/17 10:07 Home Medications: Ambulatory Orders Buprenorphine/Naloxone [Suboxone 8Mg/2Mg Sl Film -] 1 each SL BID 05/09/17 Review of Systems - Review of Systems Able to Perform ROS?: Yes Comments:: 05/11/17 10:57 GENERAL/CONSTITUTIONAL: No fever or chills. No weakness. HEAD, EYES, EARS, NOSE AND THROAT: No change in vision. No ear pain or discharge. No sore throat. CARDIOVASCULAR: No chest pain or shortness of breath. RESPIRATORY: No cough, wheezing, or hemoptysis. GASTROINTESTINAL: No nausea, vomiting, diarrhea or constipation. GENITOURINARY: No dysuria, frequency, or change in urination. MUSCULOSKELETAL: No joint or muscle swelling or pain. No neck or back pain. SKIN: (+) redness, swelling, and pain to left forearm abscess. No rash NEUROLOGIC: No headache, vertigo, loss of consciousness, or change in strength/ sensation. ENDOCRINE: No increased thirst. No abnormal weight change. HEMATOLOGIC/LYMPHATIC: No anemia, easy bleeding, or history of blood clots. ALLERGIC/IMMUNOLOGIC: No hives or skin allergy. <Ana Yoder - Last Filed: 05/11/17 10:56> *Physical Exam - Vital Signs Last Vital Signs Temp Pulse Resp BP Pulse Ox 98.1 F 67 16 109/70 100 05/11/17 10:05 05/11/17 10:05 05/11/17 10:05 05/11/17 10:05 05/11/17 10:05 - Physical Exam Comments: 05/11/17 10:57 GENERAL: Awake, alert, and fully oriented, in no acute distress HEAD: No signs of trauma EYES: PERRLA, EOMI, sclera anicteric, conjunctiva clear ENT: Auricles normal inspection, hearing grossly normal, nares patent, oropharynx clear without exudates. Moist mucosa NECK: Normal ROM, supple, no lymphadenopathy, JVD, or masses LUNGS: Breath sounds equal, clear to auscultation bilaterally. No wheezes, and no crackles HEART: Regular rate and rhythm, normal S1 and S2, no murmurs, rubs or gallops ABDOMEN: Soft, nontender, normoactive bowel sounds. No guarding, no rebound. No masses EXTREMITIES: Normal range of motion, no edema. No clubbing or cyanosis. No cords, erythema, or tenderness NEUROLOGICAL: Cranial nerves II-XII intact. Normal speech, normal gait. Sensation intact in upper and lower extremities. 5/5 motor strength in upper and lower extremities. No pronator drift. Finger to nose intact. Rapid alternations intact. SKIN: (+) 17x6cm area of erythema to volar aspect of left forearm, 4x4cm area of induration at distal volar aspect of left forearm. Warm, Dry, normal turgor, no rashes <Ana Yoder - Last Filed: 05/11/17 10:56> - Vital Signs Last Vital Signs Temp Pulse Resp BP Pulse Ox 98.1 F 67 16 109/70 100 05/11/17 10:05 05/11/17 10:05 05/11/17 10:05 05/11/17 10:05 05/11/17 10:05 <Angel Gutierrez - Last Filed: 05/11/17 12:20> Procedures - Incision and Drainage I&D Site: Left: Arm Anesthesia: 1% Lidocaine Volume(ml): 3 Blade Size: 11 Attempts: 1 Iodinated Packin/2 in Plain Packing: Yes Complications: none Progress: 05/11/17 10:51 Wound site cleansed with alcohol ~3 cc of 1% lidocaine without epinephrine injected locally for local anesthesia ~0.5 cm incision made at the most fluctuant portion of the abscess. ~4 cc of purulence and serosanguious drained. Wound culture obtained. Wound irrigated with 100cc of sterile water. 1/2 inch plain packing placed and covered with gauze. Pt tolerated the procedure well. No complications. <Angel Gutierrez - Last Filed: 05/11/17 12:20> ED Treatment Course - Medications Given in the ED: ED Medications Discontinued Medications Generic Name Dose Route Start Last Admin Trade Name Freq PRN Reason Stop Dose Admin Ketorolac Tromethamine 30 mg 05/11/17 10:21 05/11/17 10:34 Toradol Injection - IVPUSH 05/11/17 10:22 30 mg ONCE ONE Administration <Ana Yoder - Last Filed: 05/11/17 10:56> - LABORATORY CBC & Chemistry Diagram: 05/11/17 10:35 05/11/17 10:35 - Medications Given in the ED: ED Medications Discontinued Medications Generic Name Dose Route Start Last Admin Trade Name Heather PRN Reason Stop Dose Admin Ketorolac Tromethamine 30 mg 05/11/17 10:21 05/11/17 10:34 Toradol Injection - IVPUSH 05/11/17 10:22 30 mg ONCE ONE Administration <Angel Gutierrez - Last Filed: 05/11/17 12:20> Medical Decision Making - Medical Decision Making 05/11/17 10:53 A portion of this note was documented by scribe services under my direction. I have reviewed the details of the note, within reason, and agree with the documentation with the following case summary and management plan written by me. Patient treated in the ED. Nursing notes are reviewed and incorporated into the medical decision-making. Vital signs reviewed. Peripheral IV access obtained by the nurse, laboratory studies are drawn and sent, reviewed and interpreted by myself. Vital Signs Temp Pulse Resp BP Pulse Ox 98.1 F 67 16 109/70 100 05/11/17 10:05 05/11/17 10:05 05/11/17 10:05 05/11/17 10:05 05/11/17 10:05 37-year-old male with past medical history of polysubstance abuse, including IV heroin presents to the emergency department from [address] [place] [address] for left forearm abscess. Approximately 5 days ago, prior to his intake to [address] [place] [address], the patient had injected himself with heroin. Developed some erythema and increasingly larger size fluctuance. Had taken an antibiotic, which he does not remember the name. However, the fluctuance at worsen. No fevers or chills. For incision and drainage. Patient overall is nontoxic. However, the patient most certainly has an abscess with left forearm cellulitis. We'll obtain blood work and cultures and a wound culture. With the patient's consent, incision and drainage was performed and was successful. Please see procedure note. If the blood work is unremarkable, the patient is eligible for outpatient management. We'll touch base with the detox center for antibiotics. 05/11/17 12:18 CBC, BMP 05/11/17 10:35 05/11/17 10:35 CMP Sodium 138 mmol/L (136-145) 05/11/17 10:35 Potassium 4.4 mmol/L (3.5-5.1) 05/11/17 10:35 Chloride 100 mmol/L (98-107) 05/11/17 10:35 Carbon Dioxide 30 mmol/L (21-32) 05/11/17 10:35 Anion Gap 8 (8-16) 05/11/17 10:35 BUN 10 mg/dL (7-18) D 05/11/17 10:35 Creatinine 0.7 mg/dL (0.7-1.3) 05/11/17 10:35 Creat Clearance w eGFR > 60 (>60) 05/11/17 10:35 Random Glucose 98 mg/dL (74-106) 05/11/17 10:35 Calcium 9.0 mg/dL (8.5-10.1) 05/11/17 10:35 Total Bilirubin 0.3 mg/dL (0.2-1.0) D 05/11/17 10:35 AST 9 U/L (15-37) L 05/11/17 10:35 ALT 11 U/L (12-78) L 05/11/17 10:35 Alkaline Phosphatase 88 U/L (45-117) 05/11/17 10:35 Total Protein 7.2 g/dl (6.4-8.2) 05/11/17 10:35 Albumin 3.2 g/dl (3.4-5.0) L 05/11/17 10:35 Blood work reviewed. Unremarkable. I had called 2 [facility]. The patient is on PO clindamycin, which I advised the patient and the nursing station to continue. LUCY Martin accepted the patient back to [address] [place] [address]. <Angel Gutierrez - Last Filed: 05/11/17 12:20> *DC/Admit/Observation/Transfer - Attestations Scribe Attestion: 05/11/17 10:58 Documentation prepared by Ana Yoder, acting as medical researcher for Angel Gutierrez MD, <Ana Yoder - Last Filed: 05/11/17 10:56> - Transfer to Acute Care Facility Accepting Physician:: LUCY Martin [address] [place] [address] <Angel Gutierrez - Last Filed: 05/11/17 12:20> Diagnosis at time of Disposition: Abscess - Discharge Dispostion Disposition: TRANSFER ACUTE CARE/OTHER HOSP Condition at time of disposition: Improved - Patient Instructions Printed Discharge Instructions: DI for Skin Abscess Additional Instructions: The abscess was drained. Please continue the PO clindamycin as prior. Please have the 2 [facility] physicians follow up on the patient. The wound packing needs to be looked at in 2 days. The packing will likely need to be removed at that time. Please let the [facility] physicians/ nurse practitioner take a look at in 2 days for packing removal
[2017-05-11 11:13] LABS: BASO % 0.5 % (0-2.0); EOS % 0.4 % (0-4.5); HEMATOCRIT 36.5 % (35.4-49); LYMPH % 15.1 % (8-40); MCH 30.7 pg (25.7-33.7); MCHC 32.8 g/dl (32.0-35.9); MEAN CELL VOLUME 93.6 fl (80-96); MEAN PLT VOLUME 7.7 fl (7.5-11.1); MONO % 8.5 % (3.8-10.2); NEUT % 75.5 % (42.8-82.8); PLATELET COUNT 359 K/MM3 (134-434); RDW 13.8 % (11.9-15.9); WHITE BLOOD COUNT 9.2 K/mm3 (4.0-10.0)
[2017-05-11 11:37] LABS: ALBUMIN 3.2 g/dl (3.4-5.0); ANION GAP 8 (8-16); BILIRUBIN,TOTAL 0.3 mg/dL (0.2-1.0); BLOOD UREA NITROGEN 10 mg/dL (7-18); CHLORIDE 100 mmol/L (98-107); CO2 30 mmol/L (21-32); CREATININE 0.7 mg/dL (0.7-1.3); GLUCOSE,RANDOM 98 mg/dL (74-106); POTASSIUM 4.4 mmol/L (3.5-5.1); SGOT/AST 9 U/L (15-37); SGPT/ALT 11 U/L (12-78); SODIUM 138 mmol/L (136-145); TOT PROT 7.2 g/dl (6.4-8.2)
[2017-05-11 11:38] LABS: ALK PHOS 88 U/L (45-117)
[2017-05-11 14:13] VITALS: BP 102/59; PULSE 65; TEMP 97.8
--- NOTE | 2017-05-15 17:20 | PDOC ---
Patient Follow-up (Call Back) - Post ED Follow - Up Condition at time of discharge: Improved Disposition at time of original discharge: TRANSFER ACUTE CARE/OTHER HOSP Reason for Call Back: Abnwl. Microbiology (Sensitivity shows that Clindamycin is resistant to the bacteria in the abscess. Called to switch antibiotic. Spoke with mother and left message for patient to call us back.)
== END 2017-05-11 14:00 | disposition short-term general hospital (02) ==
LOC: JER 10:03
PROC: 0J9H0ZZ Drainage of Left Lower Arm Subcutaneous Tissue and Fascia, Open Approach (ICD-10-PCS; principal; 2017-05-11)
PROC: 3E0333Z Introduction of Anti-inflammatory into Peripheral Vein, Percutaneous Approach (ICD-10-PCS; 2017-05-11)
DX: L02.414 Cutaneous abscess of left upper limb (principal); F10.10 Alcohol abuse, uncomplicated; F14.10 Cocaine abuse, uncomplicated; F12.10 Cannabis abuse, uncomplicated; F13.10 Sedative, hypnotic or anxiolytic abuse, uncomplicated; F17.200 Nicotine dependence, unspecified, uncomplicated; F41.9 Anxiety disorder, unspecified
CPT/HCPCS: 10160; 36415; 80053; 85025; 87040; 87070; 87077; 87186; 87205; 96374; 99281-25

== ENCOUNTER 2018-11-20 12:01 | Inpatient (IN) | payer OTHER | END 2018-11-23 09:25 | disposition other institution (70) | LOC: YASAS 12:01 → Y3N 15:32 ==